=== PATIENT | female | born 1970 | race Caucasian/White ===

== ENCOUNTER 2020-11-17 11:42 | Inpatient (IN) ==
[2020-11-17 11:50] VITALS: BMI 28.3
[2020-11-17] MEDS ORDERED: NS 1000 ML 1,000 ML ONE ×2 (12:03→14:17)
[2020-11-17] MEDS ORDERED: DECADRON INJ IVP ONE (12:19)
[2020-11-17] MEDS ORDERED: NS 1000 ML 1,000 ML IV ONE (12:20)
--- NOTE | 2020-11-17 12:23 | DR.SOBA ---
HPI Time Seen Time Seen by Provider: 11/17/20 12:15 Primary Care Physician Primary Care Physician: DR. JEET SOTO Complaints Chief Complaint:: PT C/O SOB & LOW BP ONSET YESTERDAY. PT STATES SHE WAS DX W/ COVID ON 11-13-20. COVID-19 Coronavirus risk:travel/contact w/high risk person: Yes Has patient experienced Coronavirus symptoms: Yes Coronavirus symptoms experienced: Coughing and Shortness of Breath Reviewed Nurses Notes Reviewed: Yes Source History Provided: Patient Mode of Arrival Mode of Arrival: Wheelchair Timing Onset of Chief Complaint: 11/16/20 PMH PMH Past Medical History: Yes Past Medical History: Diabetes, GERD and Hypertension Past Surgical History: Yes Surgical History: Family History History of Family Medical Conditions: Yes Family Medical History: Diabetes Mellitus and Hypertension Travel Risk Coronavirus risk:travel/contact w/high risk person: Yes Has patient experienced Coronavirus symptoms: Yes Coronavirus symptoms experienced: Coughing and Shortness of Breath Infectious screening Have you traveled outside the country in the last 6 months?: No Isolation: Airborn/Negative Pressure ROS Review of Systems Constitutional: Chills and Fever Eyes: No Symptoms Reported ENTM: No Symptoms Reported Respiratoy: See HPI, Dry Cough and Short of Breath Cardiovascular: No Symptoms Reported Gastrointestinal/Abdominal: No Symptoms Reported Genitourinary: No Symptoms Reported Neurological: No Symptoms Reported Musculoskeletal: No Symptoms Reported Integumentary: No Symptoms Reported Hematologic/Lymphatic: No Symptoms Reported Endocrine: No Symptoms Reported Psychiatric: No Symptoms Reported All Other Systems: Reviewed and Negative PE Vital Signs Vitals: Temperature 98.0 F Pulse Rate 75 Respiratory Rate 30 Blood Pressure 93/57 O2 Sat by Pulse Oximetry 95 General Limitations: No Limitations General Appearance: Alert, In No Apparent Distress and Other (has coughing spells causing mild distress) Head Head Exam: Normal Inspection Eyes Eye exam: Normal Appearance ENT ENT Exam: Normal Exam Neck Neck Exam: Normal Inspection Chest Chest Inspection: Normal Inspection Respiratory Respiratory Exam: Normal Lung Sounds Bilat Respiratory Exam: Bilateral: Clear to Auscultation Cardiovascular Cardiovascular Exam: Regular Rate and Normal Rhythm Abdominal Exam Abdominal Exam: Normal Inspection, Normal Bowel Sounds and Soft Extremities Extremities Exam: Normal Inspection Back Back Exam: Normal Inspection Neurologic Neurological Exam: Alert and Oriented X3 Psychiatric Psychiatric Exam: Normal Affect and Normal Mood Skin Skin Exam: Warm, Dry, Intact and Normal Color MDM Differential Diagnosis Differential Diagnosis: Anxiety, Asthma, Bronchitis, Cardiogenic shock, CHF, COPD, Dysrhythmia, Hypertensive Emergency, Hyperventilation, Hyponatremia, Mycardial Infarction, Panic Attack, Pneumonia, Pneumothorax, PSVT, Pulmonary em bolism, Respiratory Failure, Respiratory Insufficiency, Sinusitis, URI and Other Differential Diagnosis Comment:: covid COURSE Treatment Treatment: hypoxia, not regen-cov candidate, see orders ROR Labs Reviewed Laboratory Results Reviewed?: Yes Result Diagrams: 11/17/20 12:10 11/17/20 12:10 Laboratory: WBC 7.3 X10^3/uL (3.6-10.0) 11/17/20 12:10 RBC 4.89 X10^6/uL (3.5-5.4) 11/17/20 12:10 Hgb 15.2 g/dL (12.0-16.0) 11/17/20 12:10 Hct 44.6 % (36.0-47.0) 11/17/20 12:10 MCV 91.2 fL (80.0-100.0) 11/17/20 12:10 MCH 31.1 pg (27.0-34.0) 11/17/20 12:10 MCHC 34.1 g/dL (33.0-35.0) 11/17/20 12:10 RDW 13.1 % (11.6-16.5) 11/17/20 12:10 Plt Count 271 X10^3/uL (150.0-450.0) 11/17/20 12:10 MPV 9.0 fL (7.4-11.0) 11/17/20 12:10 Neut % (Auto) 71.0 % (42.0-75.0) 11/17/20 12:10 Lymph % (Auto) 23.8 % (21.0-51.0) 11/17/20 12:10 [place] % (Auto) 4.4 % (0.0-13.0) 11/17/20 12:10 Eos % (Auto) 0.1 % (0.9-2.9) L 11/17/20 12:10 Baso % (Auto) 0.7 % (0.2-1.0) 11/17/20 12:10 Neut # (Auto) 5.2 x10^3/uL (2.2-4.8) H 11/17/20 12:10 Lymph # (Auto) 1.7 X10^3/uL (1.3-2.9) 11/17/20 12:10 [place] # (Auto) 0.3 x10^3/uL (0.3-0.8) 11/17/20 12:10 Eos # (Auto) 0.0 x10^3/uL (0.0-0.2) 11/17/20 12:10 Baso # (Auto) 0.1 X10^3/uL (0.0-0.1) 11/17/20 12:10 Absolute Nucleated RBC 0.1 /100WBC 11/17/20 12:10 D-Dimer 0.50 ug/ml (0.0-0.57) 11/17/20 12:10 Sample Site Rra 11/17/20 12:42 ABG pH 7.500 (7.35-7.45) H 11/17/20 12:42 ABG pCO2 43.0 mmHg (35.0-45.0) 11/17/20 12:42 ABG pO2 55.0 mmHg (80.0-100.0) L 11/17/20 12:42 ABG HCO3 33.5 mmol/L (22-26) H* 11/17/20 12:42 ABG O2 Saturation 91.0 % (90-100) 11/17/20 12:42 ABG Base Excess 9.3 mmol/L (-2.0-2.0) H 11/17/20 12:42 Rafael Test Pos 11/17/20 12:42 A-a Gradient 91.0 mmHg 11/17/20 12:42 FiO2 28.0 11/17/20 12:42 Blood Gas Comments Pt armand well eb 11/17/20 12:42 Sodium 140 mmol/L (136-145) 11/17/20 12:10 Corrected Sodium TNP 11/17/20 12:10 Potassium 3.0 mmol/L (3.5-5.1) L* 11/17/20 12:10 Chloride 98 mmol/L (98-107) 11/17/20 12:10 Carbon Dioxide 33.9 mmol/L (21-32) H 11/17/20 12:10 BUN 8 mg/dL (7-18) 11/17/20 12:10 Creatinine 0.87 mg/dL (0.55-1.02) 11/17/20 12:10 Est GFR (MDRD) Af Amer > 60 (>60) 11/17/20 12:10 Est GFR (MDRD) Non-Af > 60 (>60) 11/17/20 12:10 Glucose 88 mg/dL (65-99) 11/17/20 12:10 Calcium 8.6 mg/dL (8.5-10.1) 11/17/20 12:10 Corrected Calcium 9.2 mg/dL (8.5-10.1) 11/17/20 12:10 Magnesium 2.1 mg/dL (1.7-2.9) 11/17/20 12:10 Ferritin 427 ng/mL (8-252) H 11/17/20 12:10 Total Bilirubin 0.20 mg/dL (0.2-1.0) 11/17/20 12:10 AST 47 Units/L (15-37) H 11/17/20 12:10 ALT 53 Units/L (12-78) 11/17/20 12:10 Alkaline Phosphatase 77 Units/L (46-116) 11/17/20 12:10 Troponin I < 0.02 ng/mL (0-1.5) 11/17/20 12:42 C-Reactive Protein 135.50 mg/L (0-3.0) H 11/17/20 12:10 B-Natriuretic Peptide 7.1 pg/mL (0-79) 11/17/20 12:10 Total Protein 7.6 g/dL (6.4-8.2) 11/17/20 12:10 Albumin 3.3 g/dL (3.4-5.0) L 11/17/20 12:10 Globulin 4.3 g/dL (2.5-4.5) 11/17/20 12:10 Albumin/Globulin Ratio 0.8 Ratio (1.1-2.1) L 11/17/20 12:10 SARS-CoV-2 (PCR) Positive (NEGATIVE) A 11/17/20 12:42 Influenza Type A (PCR) Negative (NEGATIVE) 11/17/20 12:42 Influenza Type B (PCR) Negative (NEGATIVE) 11/17/20 12:42 RSV (PCR) Negative (NEGATIVE) 11/17/20 12:42 XRAY XRAY Interpreted by: Radiologist X-ray Results: pneumonia EKG Rate: 77 Louise: Normal Rhythm: NSR Block: None Hypertrophy: None ST: Nonsp Opioid Opioid Risk Tool Age (Jagdish box if 16-45): No History of Preadolescent Sexual Abuse: No Total: 0 Total Score Risk Category: Low Risk Copyright: Arnel LEAL predicting aberrant behaviors Diagnosis Discharge Problem: COVID-19 Dyspnea Qualifiers: Dyspnea type: unspecified Qualified Code(s): R06.00 - Dyspnea, unspecified
[2020-11-17 12:28] LABS: BASOPHILS # (AUTO) 0.1 X10^3/uL (0.0-0.1); BASOPHILS % (AUTO) 0.7 % (0.2-1.0); EOSINOPHILS % (AUTO) 0.1 % (0.9-2.9); HEMATOCRIT 44.6 % (36.0-47.0); HEMOGLOBIN 15.2 g/dL (12.0-16.0); LYMPHOCYTES # (AUTO) 1.7 X10^3/uL (1.3-2.9); LYMPHOCYTES % (AUTO) 23.8 % (21.0-51.0); MEAN CORPUSCULAR HEMOGLOBIN 31.1 pg (27.0-34.0); MEAN CORPUSCULAR HGB CONC 34.1 g/dL (33.0-35.0); MEAN CORPUSCULAR VOLUME 91.2 fL (80.0-100.0); MONOCYTES # (AUTO) 0.3 x10^3/uL (0.3-0.8); MONOCYTES % (AUTO) 4.4 % (0.0-13.0); NEUTROPHILS # (AUTO) 5.2 x10^3/uL (2.2-4.8); PLATELET COUNT 271 X10^3/uL (150.0-450.0); RED BLOOD COUNT 4.89 X10^6/uL (3.5-5.4); RED CELL DISTRIBUTION WIDTH 13.1 % (11.6-16.5); WHITE BLOOD COUNT 7.3 X10^3/uL (3.6-10.0)
[2020-11-17] MEDS ORDERED: DECADRON INJ ONE (12:28)
[2020-11-17] MEDS ORDERED: ZOFRAN INJ 4 MG VIAL IVP ONE (12:34)
[2020-11-17] MEDS ORDERED: ZOFRAN INJ 4 MG VIAL ONE (12:34)
[2020-11-17 12:38] LABS: ALANINE AMINOTRANSFERASE 53 Units/L (12-78); ALBUMIN 3.3 g/dL (3.4-5.0); ALKALINE PHOSPHATASE 77 Units/L (46-116); ASPARTATE AMINO TRANSFERASE 47 Units/L (15-37); BLOOD UREA NITROGEN 8 mg/dL (7-18); CALCIUM 8.6 mg/dL (8.5-10.1); CARBON DIOXIDE 33.9 mmol/L (21-32); CHLORIDE 98 mmol/L (98-107); COR CA(FOR HYPOALB) 9.2 mg/dL (8.5-10.1); CREATININE 0.87 mg/dL (0.55-1.02); SODIUM 140 mmol/L (136-145); TOTAL PROTEIN 7.6 g/dL (6.4-8.2); eGFR NON BLACK RACES > 60 (>60)
--- NOTE | 2020-11-17 12:38 | RAD ---
CHEST, 1 VIEWHISTORY: SOBStudy: Single view of the chest.Comparison:NoneFindings:The cardiomediastinal silhouette is normal. Bilateral interstitial prominence, possible early alveolar infiltrates. No focal consolidations, pleural effusions or pneumothorax. Osseous structures demonstrate no acute abnormality.IMPRESSION:1. Bilateral interstitial prominence and early alveolar infiltrates. Findings may represent atypical infection, including viral etiologies.Electronically signed by: ABIGAIL REYNOSO (Nov 17, 2020 12:36:16)
[2020-11-17 12:44] LABS: ABG BASE EXCESS 9.3 mmol/L (-2.0-2.0)
[2020-11-17 12:45] LABS: ABG ALLEN TEST POS; ABG HCO3 33.5 mmol/L (22-26)
[2020-11-17] MEDS ORDERED: REMDESIVIR 200 MG in NS 100 ML IV 140 ML IV ONE (13:19)
[2020-11-17] MEDS ORDERED: NS 1000 ML 1,000 ML IV SCH (14:00)
[2020-11-17] MEDS ORDERED: PHARMACY CONSULT - IVERMECTIN XX SCH (14:00)
[2020-11-17] MEDS ORDERED: NS 100 ML IV 100 ML ONE ×2 (14:17→15:30)
[2020-11-17] MEDS ORDERED: REMDESIVIR IV ONE (14:17)
[2020-11-17] MEDS: NS 1000 ML 1,000 ML IV SCH ×2 (14:25→22:00)
[2020-11-17] MEDS: IVERMECTIN PO SCH ×2 (15:27→15:33)
[2020-11-17] MEDS ORDERED: IVERMECTIN ONE (15:27)
[2020-11-17] MEDS ORDERED: ASCORBIC ACID INJ MULTI-DOSE VIAL IV ONE (15:31)
[2020-11-17] MEDS: ASCORBIC ACID INJ MULTI-DOSE VIAL 1,500 MG in NS 100 ML IV 100 ML IV SCH ×2 (15:34→21:00)
[2020-11-17] MEDS ORDERED: POTASSIUM CHL 60 MEQ/NS 0.45% 500 ML IV PRN (16:14)
[2020-11-17] MEDS ORDERED: KLOR-CON PO PRN (16:14)
[2020-11-17] MEDS ORDERED: POTASSIUM CHL 40 MEQ/NS 0.45% 500 ML IV PRN (16:14)
[2020-11-17] MEDS ORDERED: K-RIDER 10 MEQ/NS 100 ML 10 MEQ/100 ML BAG IV PRN (16:14)
[2020-11-17] MEDS ORDERED: MICRO K EXTEN CAP 10 MEQ PO PRN (16:14)
[2020-11-17] MEDS ORDERED: POTASSIUM CHLORIDE LIQ 20 MEQ UDC PO PRN (16:14)
[2020-11-17] MEDS ORDERED: K-DUR TAB 20 MEQ PO ONE (16:24)
[2020-11-17] MEDS: K-DUR TAB 20 MEQ PO PRN (16:30)
[2020-11-17] MEDS ORDERED: VIBRAMYCIN PO SCH (21:00)
[2020-11-17] MEDS: PEPCID TAB 40 MG PO SCH (21:00)
[2020-11-17] MEDS: ZINC SULFATE PO SCH (21:00)
[2020-11-17] MEDS: LOVENOX INJ 30 MG SYR SC SCH (21:00)
[2020-11-17] MEDS: PULMICORT NEB TX 0.5 MG NEB SCH (21:49)
[2020-11-17] MEDS: BROVANA IN SCH (21:50)
--- NOTE | 2020-11-17 23:15 | DR.H&P ---
H&P History & Physical for Day of: H&P Date: 11/17/20 Chief Complaint Chief Complaint: Shortness of breath Generalized Weakness, Fatigue Allergies Allergies Allergy/AdvReac Type Severity Reaction Status Date / Time No Known Drug Allergies Allergy Verified 11/17/20 11:50 History of Present Illness History of Present Illness: Pt is a 50 year old female past medical history of Hypertension, DMT2, Mixed Anxiety/Depression presenting after having shortness of breath, weakness, and fatigue for the past 3-4 days. Pt states she took at home test that reported positive COVID-19 infection. Her symptoms have been gradually worsening with loss of appetite and smell. In the ED, pt was noted to be hypoxic with pulse ox in the 70s. Labs/imaging: Wbc 7.3, Hgb 15.2, Plt 271, Na 140, K 3.0, Creatinine 0.87, Glucose 88, Troponin negative, COVID-19 positive, D-dimer 0.50, CRP 135, ABG: pH 7.50, pCO2 43, pO2 55, HCO3 33, O2sat 91% on FiO2 28%. CXR: 1. Bilateral interstitial prominence and early alveolar infiltrates. Findings may represent atypical infection, including viral etiologies. Will start patient on pneumonia protocol with treatment course that includes: IVF NS@75ml/h, Remdesivir, Solumedrol 125mg q6h, scheduled Bronchodilators, Antibiotics: Levaquin, Zosyn, Ivermectin, immune supporting supplements, supplemental O2, I/S, Respiratory therapy consult, Pneumonia protocol. Pt is currently utilizing 4L nasal cannula supplemental oxygen. Continue to titrate/wean oxygen as tolerated. Monitor and follow up labs/imaging in the morning. Time spent on clinical assessment, reviewing labs and imaging, decision making, and documentation greater than 45 minutes. Past Medical History Past Medical History: Diabetes, GERD and Hypertension Past Surgical History Surgical History: and [employer] Surgery Family History Family Medical History: Diabetes Mellitus and Hypertension Social History Have you used tobacco products in the last 12 months: Yes Type of Tobacco Use: Cigarettes Alcohol Use: None Drug Use: None Medications Home Medications: No Known Drug Allergies Allergy (Verified 11/17/20 11:50) CONTINUE taking the following medications albuterol sulfate 1 puff INHALATION Q4H PRN 11/17/20 [History] azithromycin See Rx Instructions .ROUTE .COMPLEX 11/17/20 [History] benzonatate 200 mg PO TID PRN 11/17/20 [History] hydroxychloroquine 200 mg PO DAILY 11/17/20 [History] ivermectin 15 mg PO DAILY 11/17/20 [History] prednisone 10 mg PO BID 11/17/20 [History] Labs Result Diagrams: 11/17/20 12:10 11/17/20 19:07 Labs: Laboratory WBC 7.3 X10^3/uL (3.6-10.0) 11/17/20 12:10 RBC 4.89 X10^6/uL (3.5-5.4) 11/17/20 12:10 Hgb 15.2 g/dL (12.0-16.0) 11/17/20 12:10 Hct 44.6 % (36.0-47.0) 11/17/20 12:10 MCV 91.2 fL (80.0-100.0) 11/17/20 12:10 MCH 31.1 pg (27.0-34.0) 11/17/20 12:10 MCHC 34.1 g/dL (33.0-35.0) 11/17/20 12:10 RDW 13.1 % (11.6-16.5) 11/17/20 12:10 Plt Count 271 X10^3/uL (150.0-450.0) 11/17/20 12:10 MPV 9.0 fL (7.4-11.0) 11/17/20 12:10 Neut % (Auto) 71.0 % (42.0-75.0) 11/17/20 12:10 Lymph % (Auto) 23.8 % (21.0-51.0) 11/17/20 12:10 [place] % (Auto) 4.4 % (0.0-13.0) 11/17/20 12:10 Eos % (Auto) 0.1 % (0.9-2.9) L 11/17/20 12:10 Baso % (Auto) 0.7 % (0.2-1.0) 11/17/20 12:10 Neut # (Auto) 5.2 x10^3/uL (2.2-4.8) H 11/17/20 12:10 Lymph # (Auto) 1.7 X10^3/uL (1.3-2.9) 11/17/20 12:10 [place] # (Auto) 0.3 x10^3/uL (0.3-0.8) 11/17/20 12:10 Eos # (Auto) 0.0 x10^3/uL (0.0-0.2) 11/17/20 12:10 Baso # (Auto) 0.1 X10^3/uL (0.0-0.1) 11/17/20 12:10 Absolute Nucleated RBC 0.1 /100WBC 11/17/20 12:10 D-Dimer 0.50 ug/ml (0.0-0.57) 11/17/20 12:10 Sample Site Rra 11/17/20 12:42 ABG pH 7.500 (7.35-7.45) H 11/17/20 12:42 ABG pCO2 43.0 mmHg (35.0-45.0) 11/17/20 12:42 ABG pO2 55.0 mmHg (80.0-100.0) L 11/17/20 12:42 ABG HCO3 33.5 mmol/L (22-26) H* 11/17/20 12:42 ABG O2 Saturation 91.0 % (90-100) 11/17/20 12:42 ABG Base Excess 9.3 mmol/L (-2.0-2.0) H 11/17/20 12:42 Rafael Test Pos 11/17/20 12:42 A-a Gradient 91.0 mmHg 11/17/20 12:42 FiO2 28.0 11/17/20 12:42 Blood Gas Comments Pt armand well eb 11/17/20 12:42 Sodium 140 mmol/L (136-145) 11/17/20 12:10 Corrected Sodium TNP 11/17/20 12:10 Potassium 4.2 mmol/L (3.5-5.1) 11/17/20 19:07 Chloride 98 mmol/L (98-107) 11/17/20 12:10 Carbon Dioxide 33.9 mmol/L (21-32) H 11/17/20 12:10 BUN 8 mg/dL (7-18) 11/17/20 12:10 Creatinine 0.87 mg/dL (0.55-1.02) 11/17/20 12:10 Est GFR (MDRD) Af Amer > 60 (>60) 11/17/20 12:10 Est GFR (MDRD) Non-Af > 60 (>60) 11/17/20 12:10 Glucose 88 mg/dL (65-99) 11/17/20 12:10 POC Glucose (mg/dL) 115 mg/dL (65-99) H 11/17/20 16:13 Calcium 8.6 mg/dL (8.5-10.1) 11/17/20 12:10 Corrected Calcium 9.2 mg/dL (8.5-10.1) 11/17/20 12:10 Magnesium 2.1 mg/dL (1.7-2.9) 11/17/20 12:10 Ferritin 427 ng/mL (8-252) H 11/17/20 12:10 Total Bilirubin 0.20 mg/dL (0.2-1.0) 11/17/20 12:10 AST 47 Units/L (15-37) H 11/17/20 12:10 ALT 53 Units/L (12-78) 11/17/20 12:10 Alkaline Phosphatase 77 Units/L (46-116) 11/17/20 12:10 Troponin I < 0.02 ng/mL (0-1.5) 11/17/20 12:42 C-Reactive Protein 135.50 mg/L (0-3.0) H 11/17/20 12:10 B-Natriuretic Peptide 7.1 pg/mL (0-79) 11/17/20 12:10 Total Protein 7.6 g/dL (6.4-8.2) 11/17/20 12:10 Albumin 3.3 g/dL (3.4-5.0) L 11/17/20 12:10 Globulin 4.3 g/dL (2.5-4.5) 11/17/20 12:10 Albumin/Globulin Ratio 0.8 Ratio (1.1-2.1) L 11/17/20 12:10 SARS-CoV-2 (PCR) Positive (NEGATIVE) A 11/17/20 12:42 Influenza Type A (PCR) Negative (NEGATIVE) 11/17/20 12:42 Influenza Type B (PCR) Negative (NEGATIVE) 11/17/20 12:42 RSV (PCR) Negative (NEGATIVE) 11/17/20 12:42 Review of Systems Constitutional: Chills and Weakness Eyes: No Symptoms Reported ENT: No Symptoms Reported Respiratory: Cough and Shortness of Breath Cardiovascular: No Symptoms Reported Gastrointestinal: No Symptoms Reported Genitourinary: No Symptoms Reported Musculoskeletal: No Symptoms Reported Skin: No Symptoms Reported Neurological: No Symptoms Reported Physical Exam Vital Signs: Temperature 99.3 F Pulse Rate [Left Brachial] 79 Pulse Rate 80 Respiratory Rate 25 Blood Pressure [Left Arm] 92/58 Blood Pressure 98/54 O2 Sat by Pulse Oximetry 90 Oriented: Normal Eyes: Normal Ear: Normal Nose: Normal Throat: Normal Respiratory: Diminished Throughout, Rhonchi Throughout and Rales Throughout Cardiovascular: Normal : Normal Auscultation: Bowel Sounds: Normal Palpation: Normal Tenderness: Normal Skin: Normal Musculoskeletal: Normal Psychiatric: Normal Mood Description: Calm and Appropriate Affect: Normal Speech Pattern: Clear and Appropriate Assessment/Plan (1) Pneumonia due to COVID-19 virus: Status: Acute Plan: Pneumonia protocol (2) Hypertension: Status: Acute (3) Type 2 diabetes mellitus: Status: Acute Review H&P Reviewed: Yes Patient was examined?: Yes
[2020-11-17] MEDS ORDERED: HumuLIN R SC PRN (23:16)
[2020-11-18] MEDS: ZOSYN VIAL 3.375 GRAMS 3.375 G in NS 100 ML IV + SPIKE MINIBAG* 100 ML IV SCH ×4 (00:15→21:55)
[2020-11-18] MEDS: LEVAQUIN TAB 500 MG PO SCH ×2 (00:20→21:55)
[2020-11-18] MEDS: SOLU-Medrol 125 MG VIAL IVP SCH ×4 (03:00→21:56)
[2020-11-18] MEDS: ASCORBIC ACID INJ MULTI-DOSE VIAL 1,500 MG in NS 100 ML IV 100 ML IV SCH ×4 (03:26→21:55)
[2020-11-18] MEDS: NS 1000 ML 1,000 ML IV SCH ×4 (06:02→21:56)
[2020-11-18 06:48] LABS: BASOPHILS % (AUTO) 0.2 % (0.2-1.0); HEMATOCRIT 41.6 % (36.0-47.0); HEMOGLOBIN 14.1 g/dL (12.0-16.0); LYMPHOCYTES # (AUTO) 1.1 X10^3/uL (1.3-2.9); LYMPHOCYTES % (AUTO) 14.7 % (21.0-51.0); MEAN CORPUSCULAR HEMOGLOBIN 30.8 pg (27.0-34.0); MEAN CORPUSCULAR VOLUME 90.6 fL (80.0-100.0); MEAN PLATELET VOLUME 9.2 fL (7.4-11.0); MONOCYTES # (AUTO) 0.4 x10^3/uL (0.3-0.8); MONOCYTES % (AUTO) 5.7 % (0.0-13.0); NEUTROPHILS # (AUTO) 5.9 x10^3/uL (2.2-4.8); NEUTROPHILS % (AUTO) 79.4 % (42.0-75.0); PLATELET COUNT 280 X10^3/uL (150.0-450.0); RED BLOOD COUNT 4.59 X10^6/uL (3.5-5.4); RED CELL DISTRIBUTION WIDTH 13.2 % (11.6-16.5); WHITE BLOOD COUNT 7.5 X10^3/uL (3.6-10.0)
[2020-11-18 07:50] LABS: ALANINE AMINOTRANSFERASE 48 Units/L (12-78); ALBUMIN 2.9 g/dL (3.4-5.0); ALKALINE PHOSPHATASE 65 Units/L (46-116); ASPARTATE AMINO TRANSFERASE 38 Units/L (15-37); BLOOD UREA NITROGEN 7 mg/dL (7-18); CALCIUM 8.1 mg/dL (8.5-10.1); CARBON DIOXIDE 29.5 mmol/L (21-32); CHLORIDE 104 mmol/L (98-107); CREATININE 0.66 mg/dL (0.55-1.02); SODIUM 143 mmol/L (136-145); eGFR NON BLACK RACES > 60 (>60)
--- NOTE | 2020-11-18 08:09 | RAD ---
HISTORYPNEUMONIA F/U PSH: CSECSTUDYCHEST, 1 [id number] trachea is midline. There is stable heart size. Mediastinum within normal limits. There is again seen patchy ground-glass and alveolar radiopacities involving the right upper lobe, the left midlung zone and the left lower lobe, overall no interval change. There is no evidence of subcutaneous emphysema, pneumothorax or pneumomediastinum.IMPRESSIONOverall bilateral stable patchy ground-glass and alveolar radiopacities.Electronically signed by: Alecia Waddell (Nov 18, 2020 08:07:34)
[2020-11-18] MEDS ORDERED: DECADRON INJ IVP SCH (09:00)
[2020-11-18] MEDS ORDERED: VITAMIN D (1.25MG) PO SCH (09:00)
[2020-11-18] MEDS ORDERED: VITAMIN A PO SCH (09:00)
[2020-11-18] MEDS: PULMICORT NEB TX 0.5 MG NEB SCH ×2 (09:36→21:28)
[2020-11-18] MEDS: BROVANA IN SCH ×2 (09:36→21:28)
[2020-11-18] MEDS: REMDESIVIR 100 MG in NS 100 ML IV + SPIKE MINIBAG* 120 ML IV SCH (09:51)
[2020-11-18] MEDS: ZINC SULFATE PO SCH ×2 (09:52→21:56)
[2020-11-18] MEDS: TRICOR TAB 160 MG PO SCH (09:53)
[2020-11-18] MEDS: PEPCID TAB 40 MG PO SCH ×2 (09:53→21:55)
[2020-11-18] MEDS: IVERMECTIN PO SCH (10:00)
[2020-11-18] MEDS: LOVENOX INJ 30 MG SYR SC SCH ×2 (10:00→21:56)
[2020-11-18] MEDS: EFFEXOR XR 75 MG CAP 24-HR PO SCH (12:00)
--- NOTE | 2020-11-18 13:35 | PCM.PROG ---
Progress Note Progress Note for Day of Date of Exam: 11/18/20 Subjective Subjective: Pt is a 50 year old female past medical history of Hypertension, DMT2, Mixed Anxiety/Depression admitted for COVID-19 pneumonia with hypoxia. This morning patient laying in bed. She reports no significant change in her respiratory status, still having significant shortness of breath. She is currently utilizing 4L nasal cannula supplemental oxygen. Labs/imaging: Wbc 7.5, Hgb 14.1, Plt 280, Na 143, K 3.7, Creatinine 0.66, Glucose 97, CRP 135>99, CXR: Overall bilateral stable patchy ground-glass and alveolar radiopacities. Pt is on treatment course that includes: IVF NS@75ml/h, Remdesivir, Solumedrol 125mg q6h, scheduled Bronchodilators, Antibiotics: Levaquin, Zosyn, Ivermectin, immune supporting supplements, supplemental O2, SSI, I/S, Respiratory therapy consult, Pneumonia protocol. Pt having anxiety, restart home effexor and add on xanax prn. Continue to titrate/wean oxygen as tolerated. Monitor and follow up labs/imaging in the morning. Time spent on clinical assessment, reviewing labs and imaging, decision making, and documentation greater than 45 minutes. Past Medical Family Social History Past Med/Fam/Surg Hx: No changes since H&P Allergies: Allergies No Known Drug Allergies Allergy (Verified 11/17/20 11:50) Review of Systems ROS: No change since H&P Vital Signs and I&O's Vital Signs: Temperature 97.7 F Pulse Rate [Left Brachial] 56 Pulse Rate 80 Respiratory Rate 18 Blood Pressure [Left Arm] 104/68 Blood Pressure 98/54 O2 Sat by Pulse Oximetry 96 Intake and Output: Intake & Output 11/15/20 11/16/20 11/17/20 11/18/20 23:59 23:59 23:59 23:59 Intake Total 1550 / 1550 300 / 300 Output Total 300 / 300 Balance 1250 / 1250 300 / 300 Physical Exam Oriented: Normal Eyes: Normal Ear: Normal Nose: Normal Throat: Normal Respiratory: Diminished and Rales Cardiovascular: Normal : Normal Auscultation: Bowel Sounds: Normal Tenderness: Normal Skin: Normal Musculoskeletal: Normal Psychiatric: Normal Mood Description: Calm and Appropriate Affect: Normal Speech Pattern: Clear and Appropriate Laboratory and Diagnostics Result Diagrams: 11/18/20 06:13 11/18/20 06:13 Labs: Laboratory WBC 7.5 X10^3/uL (3.6-10.0) 11/18/20 06:13 RBC 4.59 X10^6/uL (3.5-5.4) 11/18/20 06:13 Hgb 14.1 g/dL (12.0-16.0) 11/18/20 06:13 Hct 41.6 % (36.0-47.0) 11/18/20 06:13 MCV 90.6 fL (80.0-100.0) 11/18/20 06:13 MCH 30.8 pg (27.0-34.0) 11/18/20 06:13 MCHC 34.0 g/dL (33.0-35.0) 11/18/20 06:13 RDW 13.2 % (11.6-16.5) 11/18/20 06:13 Plt Count 280 X10^3/uL (150.0-450.0) 11/18/20 06:13 MPV 9.2 fL (7.4-11.0) 11/18/20 06:13 Neut % (Auto) 79.4 % (42.0-75.0) H 11/18/20 06:13 Lymph % (Auto) 14.7 % (21.0-51.0) L 11/18/20 06:13 [place] % (Auto) 5.7 % (0.0-13.0) 11/18/20 06:13 Eos % (Auto) 0.0 % (0.9-2.9) L 11/18/20 06:13 Baso % (Auto) 0.2 % (0.2-1.0) 11/18/20 06:13 Neut # (Auto) 5.9 x10^3/uL (2.2-4.8) H 11/18/20 06:13 Lymph # (Auto) 1.1 X10^3/uL (1.3-2.9) L 11/18/20 06:13 [place] # (Auto) 0.4 x10^3/uL (0.3-0.8) 11/18/20 06:13 Eos # (Auto) 0.0 x10^3/uL (0.0-0.2) 11/18/20 06:13 Baso # (Auto) 0.0 X10^3/uL (0.0-0.1) 11/18/20 06:13 Absolute Nucleated RBC 0.1 /100WBC 11/18/20 06:13 D-Dimer 0.50 ug/ml (0.0-0.57) 11/17/20 12:10 Sample Site Rra 11/17/20 12:42 ABG pH 7.500 (7.35-7.45) H 11/17/20 12:42 ABG pCO2 43.0 mmHg (35.0-45.0) 11/17/20 12:42 ABG pO2 55.0 mmHg (80.0-100.0) L 11/17/20 12:42 ABG HCO3 33.5 mmol/L (22-26) H* 11/17/20 12:42 ABG O2 Saturation 91.0 % (90-100) 11/17/20 12:42 ABG Base Excess 9.3 mmol/L (-2.0-2.0) H 11/17/20 12:42 Rafael Test Pos 11/17/20 12:42 A-a Gradient 91.0 mmHg 11/17/20 12:42 FiO2 28.0 11/17/20 12:42 Blood Gas Comments Pt armand well eb 11/17/20 12:42 Sodium 143 mmol/L (136-145) 11/18/20 06:13 Corrected Sodium TNP 11/18/20 06:13 Potassium 3.7 mmol/L (3.5-5.1) 11/18/20 06:13 Chloride 104 mmol/L (98-107) 11/18/20 06:13 Carbon Dioxide 29.5 mmol/L (21-32) 11/18/20 06:13 BUN 7 mg/dL (7-18) 11/18/20 06:13 Creatinine 0.66 mg/dL (0.55-1.02) 11/18/20 06:13 Est GFR (MDRD) Af Amer > 60 (>60) 11/18/20 06:13 Est GFR (MDRD) Non-Af > 60 (>60) 11/18/20 06:13 Glucose 97 mg/dL (65-99) 11/18/20 06:13 POC Glucose (mg/dL) 141 mg/dL (65-99) H 11/18/20 12:56 Calcium 8.1 mg/dL (8.5-10.1) L 11/18/20 06:13 Corrected Calcium 9.0 mg/dL (8.5-10.1) 11/18/20 06:13 Magnesium 2.1 mg/dL (1.7-2.9) 11/17/20 12:10 Ferritin 427 ng/mL (8-252) H 11/17/20 12:10 Total Bilirubin 0.30 mg/dL (0.2-1.0) 11/18/20 06:13 AST 38 Units/L (15-37) H 11/18/20 06:13 ALT 48 Units/L (12-78) 11/18/20 06:13 Alkaline Phosphatase 65 Units/L (46-116) 11/18/20 06:13 Troponin I < 0.02 ng/mL (0-1.5) 11/17/20 12:42 C-Reactive Protein 99.50 mg/L (0-3.0) H 11/18/20 06:13 B-Natriuretic Peptide 7.1 pg/mL (0-79) 11/17/20 12:10 Total Protein 7.0 g/dL (6.4-8.2) 11/18/20 06:13 Albumin 2.9 g/dL (3.4-5.0) L 11/18/20 06:13 Globulin 4.1 g/dL (2.5-4.5) 11/18/20 06:13 Albumin/Globulin Ratio 0.7 Ratio (1.1-2.1) L 11/18/20 06:13 SARS-CoV-2 (PCR) Positive (NEGATIVE) A 11/17/20 12:42 Influenza Type A (PCR) Negative (NEGATIVE) 11/17/20 12:42 Influenza Type B (PCR) Negative (NEGATIVE) 11/17/20 12:42 RSV (PCR) Negative (NEGATIVE) 11/17/20 12:42 Plan (1) Pneumonia due to COVID-19 virus: Status: Acute Plan: Pneumonia protocol (2) Hypertension: Status: Acute (3) Type 2 diabetes mellitus: Status: Acute
[2020-11-18] MEDS ORDERED: XANAX PO PRN (13:57)
[2020-11-18] MEDS ORDERED: GLUCOPHAGE ONE (16:46)
[2020-11-18] MEDS: GLUCOPHAGE PO SCH (16:53)
[2020-11-18] MEDS: K-DUR TAB 20 MEQ PO PRN (16:53)
[2020-11-18] MEDS ORDERED: ZOFRAN INJ 4 MG VIAL IVP PRN (23:14)
[2020-11-19] MEDS: SOLU-Medrol 125 MG VIAL IVP SCH ×2 (02:10→09:35)
[2020-11-19] MEDS: ASCORBIC ACID INJ MULTI-DOSE VIAL 1,500 MG in NS 100 ML IV 100 ML IV SCH ×2 (02:10→10:41)
[2020-11-19] MEDS ORDERED: GLUCOPHAGE ONE ×2 (03:41→08:18)
[2020-11-19] MEDS: NS 1000 ML 1,000 ML IV SCH (05:08)
[2020-11-19] MEDS: ZOSYN VIAL 3.375 GRAMS 3.375 G in NS 100 ML IV + SPIKE MINIBAG* 100 ML IV SCH (05:09)
--- NOTE | 2020-11-19 06:50 | RAD ---
HISTORYCOVID-19 pneumoniaSTUDYAP [id number] normal heart size and contour. Similar appearance of perip heral infiltrate in the left midlung. Slight interval increase in similar process in the right lung. No pneumothorax or pleural fluid demonstrated.IMPRESSIONPersistent bilateral pneumonia with slight rosado ggested progression in the right lung since 1 day earlier.Electronically signed by: SUZANNE adame 2020 06:47:48)
[2020-11-19 06:59] LABS: BASOPHILS % (AUTO) 0.1 % (0.2-1.0); HEMATOCRIT 39.4 % (36.0-47.0); HEMOGLOBIN 13.3 g/dL (12.0-16.0); LYMPHOCYTES # (AUTO) 1.1 X10^3/uL (1.3-2.9); LYMPHOCYTES % (AUTO) 14.3 % (21.0-51.0); MEAN CORPUSCULAR HEMOGLOBIN 30.8 pg (27.0-34.0); MEAN CORPUSCULAR HGB CONC 33.8 g/dL (33.0-35.0); MEAN CORPUSCULAR VOLUME 91.1 fL (80.0-100.0); MEAN PLATELET VOLUME 9.1 fL (7.4-11.0); MONOCYTES # (AUTO) 0.4 x10^3/uL (0.3-0.8); MONOCYTES % (AUTO) 4.8 % (0.0-13.0); NEUTROPHILS # (AUTO) 6.3 x10^3/uL (2.2-4.8); NEUTROPHILS % (AUTO) 80.8 % (42.0-75.0); PLATELET COUNT 275 X10^3/uL (150.0-450.0); RED BLOOD COUNT 4.32 X10^6/uL (3.5-5.4); RED CELL DISTRIBUTION WIDTH 13.5 % (11.6-16.5); WHITE BLOOD COUNT 7.8 X10^3/uL (3.6-10.0)
[2020-11-19 07:07] LABS: ALANINE AMINOTRANSFERASE 62 Units/L (12-78); ALBUMIN 2.6 g/dL (3.4-5.0); ALKALINE PHOSPHATASE 57 Units/L (46-116); ASPARTATE AMINO TRANSFERASE 45 Units/L (15-37); BLOOD UREA NITROGEN 9 mg/dL (7-18); CALCIUM 7.9 mg/dL (8.5-10.1); CARBON DIOXIDE 29.2 mmol/L (21-32); CHLORIDE 109 mmol/L (98-107); COR NA(FOR HYPERGLY) 148 mmol/L (136-145); CREATININE 0.73 mg/dL (0.55-1.02); SODIUM 146 mmol/L (136-145); TOTAL PROTEIN 6.2 g/dL (6.4-8.2); eGFR NON BLACK RACES > 60 (>60)
[2020-11-19] MEDS ORDERED: VITAMIN A PO SCH (09:00)
[2020-11-19] MEDS ORDERED: VITAMIN D3 125 mcg (5,000 UNITS) PO SCH (09:00)
[2020-11-19] MEDS: PULMICORT NEB TX 0.5 MG NEB SCH (09:35)
[2020-11-19] MEDS: BROVANA IN SCH (09:35)
[2020-11-19] MEDS: ZINC SULFATE PO SCH (09:38)
[2020-11-19] MEDS: IVERMECTIN PO SCH (09:38)
[2020-11-19] MEDS: EFFEXOR XR 75 MG CAP 24-HR PO SCH (09:39)
[2020-11-19] MEDS: PEPCID TAB 40 MG PO SCH (09:39)
[2020-11-19] MEDS: GLUCOPHAGE PO SCH (09:39)
[2020-11-19] MEDS: TRICOR TAB 160 MG PO SCH (09:40)
[2020-11-19] MEDS: LOVENOX INJ 30 MG SYR SC SCH (10:41)
--- NOTE | 2020-11-19 11:46 | W.DIS.FURT ---
Summary of Discharge Discharge Summary of Date Date of Exam: 11/19/20 Admission Diagnosis Patient Problems (Updated 11/18/20 @ 06:35 by Darrion Bennett) Dyspnea (Acute) R06.00 COVID-19 (Acute) U07.1 Vital Signs: Vital Signs (72 hours) 11/17/20 11:45 11/17/20 12:23 11/17/20 12:30 Temperature 98.0 F Pulse Rate 79 78 77 Pulse Rate [Left Brachial] Respiratory Rate 17 24 24 Blood Pressure 88/54 93/57 Blood Pressure [Left Arm] O2 Sat by Pulse Oximetry 85 L 91 L 91 L 11/17/20 12:45 11/17/20 13:00 11/17/20 13:15 Temperature Pulse Rate 75 77 75 Pulse Rate [Left Brachial] Respiratory Rate 25 H 33 H 30 H Blood Pressure 95/60 94/54 93/57 Blood Pressure [Left Arm] O2 Sat by Pulse Oximetry 96 96 95 11/17/20 13:30 11/17/20 13:45 11/17/20 14:00 Temperature Pulse Rate 79 80 81 Pulse Rate [Left Brachial] Respiratory Rate 34 H 33 H 47 H Blood Pressure 94/53 98/53 97/52 Blood Pressure [Left Arm] O2 Sat by Pulse Oximetry 98 93 L 90 L 11/17/20 14:15 11/17/20 14:30 11/17/20 14:31 Temperature Pulse Rate 80 80 80 Pulse Rate [Left Brachial] Respiratory Rate 38 H 30 H 28 H Blood Pressure 88/50 86/48 82/47 Blood Pressure [Left Arm] O2 Sat by Pulse Oximetry 91 L 88 L 90 L 11/17/20 14:45 11/17/20 15:00 11/17/20 15:16 Temperature Pulse Rate 81 81 80 Pulse Rate [Left Brachial] Respiratory Rate 32 H 38 H 23 Blood Pressure 88/52 88/51 100/62 Blood Pressure [Left Arm] O2 Sat by Pulse Oximetry 90 L 89 L 11/17/20 15:30 11/17/20 16:00 11/17/20 20:00 Temperature 99.3 F 98.1 F Pulse Rate 78 Pulse Rate [Left Brachial] 79 61 Respiratory Rate 21 25 H 18 Blood Pressure 98/54 Blood Pressure [Left Arm] 92/58 99/61 O2 Sat by Pulse Oximetry 88 L 92 L 92 L 11/17/20 21:50 09/03/21 00:00 11/18/20 04:00 Temperature 97.7 F 97.9 F Pulse Rate 80 Pulse Rate [Left Brachial] 59 L 57 L Respiratory Rate 18 18 Blood Pressure Blood Pressure [Left Arm] 107/63 107/63 O2 Sat by Pulse Oximetry 90 L 95 92 L 11/18/20 08:00 11/18/20 12:00 11/18/20 16:00 Temperature 98.7 F 97.7 F 98.5 F Pulse Rate Pulse Rate [Left Brachial] 63 56 L 56 L Respiratory Rate 18 18 20 Blood Pressure Blood Pressure [Left Arm] 110/59 104/68 114/56 O2 Sat by Pulse Oximetry 92 L 96 94 L 11/18/20 20:00 11/18/20 21:28 11/19/20 00:00 Temperature 97.5 F L 98.0 F Pulse Rate 50 L Pulse Rate [Left Brachial] 52 L 54 L Respiratory Rate 20 20 Blood Pressure Blood Pressure [Left Arm] 136/65 114/61 O2 Sat by Pulse Oximetry 96 91 L 96 11/19/20 04:00 11/19/20 08:00 11/19/20 09:35 Temperature 98.6 F 97.8 F Pulse Rate 61 Pulse Rate [Left Brachial] 51 L 50 L Respiratory Rate 20 22 Blood Pressure Blood Pressure [Left Arm] 132/66 119/58 O2 Sat by Pulse Oximetry 96 92 L 92 L Labs: Laboratory Last Values WBC 7.8 X10^3/uL (3.6-10.0) 11/19/20 06:26 RBC 4.32 X10^6/uL (3.5-5.4) 11/19/20 06:26 Hgb 13.3 g/dL (12.0-16.0) 11/19/20 06:26 Hct 39.4 % (36.0-47.0) 11/19/20 06:26 MCV 91.1 fL (80.0-100.0) 11/19/20 06:26 MCH 30.8 pg (27.0-34.0) 11/19/20 06:26 MCHC 33.8 g/dL (33.0-35.0) 11/19/20 06:26 RDW 13.5 % (11.6-16.5) 11/19/20 06:26 Plt Count 275 X10^3/uL (150.0-450.0) 11/19/20 06:26 MPV 9.1 fL (7.4-11.0) 11/19/20 06:26 Neut % (Auto) 80.8 % (42.0-75.0) H 11/19/20 06:26 Lymph % (Auto) 14.3 % (21.0-51.0) L 11/19/20 06:26 [place] % (Auto) 4.8 % (0.0-13.0) 11/19/20 06:26 Eos % (Auto) 0.0 % (0.9-2.9) L 11/19/20 06:26 Baso % (Auto) 0.1 % (0.2-1.0) L 11/19/20 06:26 Neut # (Auto) 6.3 x10^3/uL (2.2-4.8) H 11/19/20 06:26 Lymph # (Auto) 1.1 X10^3/uL (1.3-2.9) L 11/19/20 06:26 [place]wsley # (Auto) 0.4 x10^3/uL (0.3-0.8) 11/19/20 06:26 Eos # (Auto) 0.0 x10^3/uL (0.0-0.2) 11/19/20 06:26 Baso # (Auto) 0.0 X10^3/uL (0.0-0.1) 11/19/20 06:26 Absolute Nucleated RBC 0.0 /100WBC 11/19/20 06:26 D-Dimer 0.50 ug/ml (0.0-0.57) 11/17/20 12:10 Sample Site Rra 11/17/20 12:42 ABG pH 7.500 (7.35-7.45) H 11/17/20 12:42 ABG pCO2 43.0 mmHg (35.0-45.0) 11/17/20 12:42 ABG pO2 55.0 mmHg (80.0-100.0) L 11/17/20 12:42 ABG HCO3 33.5 mmol/L (22-26) H* 11/17/20 12:42 ABG O2 Saturation 91.0 % (90-100) 11/17/20 12:42 ABG Base Excess 9.3 mmol/L (-2.0-2.0) H 11/17/20 12:42 Rafael Test Pos 11/17/20 12:42 A-a Gradient 91.0 mmHg 11/17/20 12:42 FiO2 28.0 11/17/20 12:42 Blood Gas Comments Pt armand well eb 11/17/20 12:42 Sodium 146 mmol/L (136-145) H 11/19/20 06:26 Corrected Sodium 148 mmol/L (136-145) H 11/19/20 06:26 Potassium 3.7 mmol/L (3.5-5.1) 11/19/20 06:26 Chloride 109 mmol/L (98-107) H 11/19/20 06:26 Carbon Dioxide 29.2 mmol/L (21-32) 11/19/20 06:26 BUN 9 mg/dL (7-18) 11/19/20 06:26 Creatinine 0.73 mg/dL (0.55-1.02) 11/19/20 06:26 Est GFR (MDRD) Af Amer > 60 (>60) 11/19/20 06:26 Est GFR (MDRD) Non-Af > 60 (>60) 11/19/20 06:26 Glucose 169 mg/dL (65-99) H 11/19/20 06:26 POC Glucose (mg/dL) 202 mg/dL (65-99) H 11/19/20 11:23 Calcium 7.9 mg/dL (8.5-10.1) L 11/19/20 06:26 Corrected Calcium 9.0 mg/dL (8.5-10.1) 11/19/20 06:26 Magnesium 2.1 mg/dL (1.7-2.9) 11/17/20 12:10 Ferritin 427 ng/mL (8-252) H 11/17/20 12:10 Total Bilirubin 0.30 mg/dL (0.2-1.0) 11/19/20 06:26 AST 45 Units/L (15-37) H 11/19/20 06:26 ALT 62 Units/L (12-78) 11/19/20 06:26 Alkaline Phosphatase 57 Units/L (46-116) 11/19/20 06:26 Troponin I < 0.02 ng/mL (0-1.5) 11/17/20 12:42 C-Reactive Protein 32.70 mg/L (0-3.0) H 11/19/20 06:26 B-Natriuretic Peptide 7.1 pg/mL (0-79) 11/17/20 12:10 Total Protein 6.2 g/dL (6.4-8.2) L 11/19/20 06:26 Albumin 2.6 g/dL (3.4-5.0) L 11/19/20 06:26 Globulin 3.6 g/dL (2.5-4.5) 11/19/20 06:26 Albumin/Globulin Ratio 0.7 Ratio (1.1-2.1) L 11/19/20 06:26 SARS-CoV-2 (PCR) Positive (NEGATIVE) A 11/17/20 12:42 Influenza Type A (PCR) Negative (NEGATIVE) 11/17/20 12:42 Influenza Type B (PCR) Negative (NEGATIVE) 11/17/20 12:42 RSV (PCR) Negative (NEGATIVE) 11/17/20 12:42 Reason For Visit: COVID PNEUMONIA Discharge Diagnosis All Active Problems (Updated 11/18/20 @ 06:35 by Darrion Bennett) Type 2 diabetes mellitus (Acute) Hypertension (Acute) Pneumonia due to COVID-19 virus (Acute) Dyspnea (Acute) COVID-19 (Acute) Plan of Treatment: Continue with present treatment and follow up plan. Pt is to keep follow up appointment as instructed and take medications as ordered. Discharge Medications Discharge Medications: No Known Drug Allergies Allergy (Verified 11/17/20 11:50) CONTINUE taking the following medications albuterol sulfate 1 puff INHALATION Q4H PRN 11/17/20 [History] benzonatate 200 mg PO TID PRN 11/17/20 [History] venlafaxine [Effexor XR] 75 mg PO QAM 11/18/20 [History] New Prescriptions alprazolam 0.25 mg PO BID PRN 10 Days #20 tab MDD 2 tabs 11/19/20 [Rx] levofloxacin 750 mg PO DAILY 5 Days #5 tab 11/19/20 [Rx] prednisone 40 mg PO DAILY 5 Days #10 tab 11/19/20 [Rx] Discharge Plan Discharge Plan Patient Disposition: HOME, SELF-CARE Condition: Stable Health Concerns: Post Hospitalization: new medications and changes needed to prevent readmission or further decline. Pt educated and given instructions on all concerns. Care Plan Goals: Problem: Respiratory Complications Goal: Improved Uncomplicated Respiratory Status Instructions: Follow provided instructions. Follow up with primary physician as directed. Contact primary care physician or report to the closest Emergency Room if condition worsens. Plan of Treatment: Continue with present treatment and follow up plan. Pt is to keep follow up appointment as instructed and take medications as ordered. Prescriptions: New levofloxacin 750 mg tablet 750 mg PO DAILY 5 Days Qty: 5 RF: 0 alprazolam 0.25 mg Tablet 0.25 mg PO BID MDD 2 tabs PRN10 Days Qty: 20 RF: 0 prednisone 20 mg tablet 40 mg PO DAILY 5 Days Qty: 10 RF: 0 Continued benzonatate 100 mg capsule 200 mg PO TID PRNRF: 0 albuterol sulfate 90 mcg/actuation HFA aerosol inhaler 1 puff INHALATION Q4H PRNRF: 0 venlafaxine [Effexor XR] 75 mg Capsule,Extended Release 24hr 75 mg PO QAM RF: 0 Discontinued ivermectin 3 mg tablet 15 mg PO DAILY RF: 0 prednisone 10 mg tablet 10 mg PO BID RF: 0 azithromycin 250 mg tablet See Rx Instructions .ROUTE .COMPLEX RF: 0 hydroxychloroquine 200 mg tablet 200 mg PO DAILY RF: 0 Follow ups/Referrals Follow ups/Referrals: JEET SOTO [Primary Care Provider] - 1 WEEK Instructions Instructions: Incentive Spirometer, Viral Respiratory Infection, [id number], Home Oxygen Use, Adult, Hand Washing, Nhjj-[id number], Type 2 Diabetes Mellitus, Self Care, Adult, Gaan-om-Mebh, Droplet Precautions, [id number], Contact Precautions, Genk-et-Ezjf, Hypertension, Liio-iq-Hkjp, Community-Acquired Pneumonia, Adult, Vyou-qq-Ayhq Stand Alone Forms: Precautions for COVID19, [facility], Patient Portal, Social Distancing
[2020-11-19] MEDS: REMDESIVIR 100 MG in NS 100 ML IV + SPIKE MINIBAG* 120 ML IV SCH (12:41)
[2020-11-19 13:42] VITALS: BP 133/68
== END 2020-11-19 13:30 | disposition home or self-care (01) | DRG 177 ==
LOC: ER 11:42 → OBS 13:16 → MED/SURG 20:21
PROVIDERS: ADMIT Family Medicine; ATTEND Family Medicine
DX: R09.02 Hypoxemia; R79.89 Other specified abnormal findings of blood chemistry; U07.1 COVID-19; F41.8 Other specified anxiety disorders; E11.65 Type 2 diabetes mellitus with hyperglycemia; J12.82 Pneumonia due to coronavirus disease 2019; R06.02 Shortness of breath; K21.9 Gastro-esophageal reflux disease without esophagitis; I10 Essential (primary) hypertension; R79.82 Elevated C-reactive protein (CRP)